=== PATIENT | female | born 1955 | race Caucasian/White ===

== ENCOUNTER → 2016-09-11 | Outpatient (CLI) | payer MEDICARE, OTHER ==
[~2016-09-11] MED LIST: ASPI-496 PO; ASPI-515 PO; B CO PO; CALC-451 PO; CHOL200024 PO; CLIN300C93 PO; CRAN1CAP9 PO; DEXA2TAB PO; DEXL30CA2 PO; EQUATE SLEEP AID PO; ESOM40CA PO; ESTR0.45 PO; FAMO-79 PO; FURO-93 PO; LEVE500T53 PO; LOSA25TA5 PO; MULT-717 PO; NAPR500T8 PO; OMEG1CAP48 PO; OXYC1TAB7 PO; RANI300T PO; SIMV10TA3 PO; VITA400T6 PO
== END | disposition home or self-care (01) ==
LOC: CFH 10:58
PROVIDERS: ATTEND Nurse Practitioner Family
DX: Z12.31 Encounter for screening mammogram for malignant neoplasm of breast (principal)
CPT/HCPCS: 77063; G0202

== ENCOUNTER → 2016-11-06 | Outpatient (CLI) | payer MEDICARE, OTHER ==
[~2016-11-06] MED LIST changes: +ACET1TAB64 PO; +LINA145C PO; +POTA15TA PO
== END | disposition home or self-care (01) ==
LOC: ROC 11:33
PROVIDERS: ATTEND Radiology Radiation Oncology
DX: D32.0 Benign neoplasm of cerebral meninges (principal)
CPT/HCPCS: G0463

== ENCOUNTER 2017-02-03 12:23 | Emergency (ER) | payer MEDICARE, OTHER ==
[~2017-02-03] VITALS: Ht 157.5 cm; Wt 65.0 kg
[2017-02-03 12:59] LABS: HEMATOCRIT 39.2 % (34.6-47.8); HEMOGLOBIN 12.9 g/dL (11.7-16.4); WHITE BLOOD COUNT 6.9 x10^3/uL (3.4-10)
[2017-02-03 13:09] LABS: BLOOD UREA NITROGEN 20 mg/dL (7-18)
[2017-02-03 14:45] VITALS: BP 127/69
== END 2017-02-03 14:50 | disposition home or self-care (01) ==
LOC: ED 14:00
DX: R56.9 Unspecified convulsions (principal); F41.1 Generalized anxiety disorder; I10 Essential (primary) hypertension; K21.9 Gastro-esophageal reflux disease without esophagitis; Z87.891 Personal history of nicotine dependence
CPT/HCPCS: 36415; 70450; 80048; 82040; 85025; 93005; 99285

== ENCOUNTER → 2017-08-18 | Outpatient (CLI) | payer MEDICARE, OTHER ==
[~2017-08-18] MED LIST changes: +CLIN300C8 PO; -CLIN300C93 PO; +GADOBUTROL 7.5 MMOL/7.5 ML PFS ONE
== END | disposition home or self-care (01) ==
LOC: CFH 12:16
PROVIDERS: ATTEND Nurse Practitioner
DX: D32.0 Benign neoplasm of cerebral meninges (principal)
CPT/HCPCS: 70553; 82565; A9585

== ENCOUNTER → 2018-02-03 | Outpatient (CLI) | payer MEDICARE, OTHER | END | disposition home or self-care (01) | LOC: CFH 12:00 | PROVIDERS: ATTEND Psychiatry & Neurology Neurology | DX: C70.9 Malignant neoplasm of meninges, unspecified (principal); D32.9 Benign neoplasm of meninges, unspecified; Z87.891 Personal history of nicotine dependence; Z85.820 Personal history of malignant melanoma of skin | CPT/HCPCS: 70553; 82565; A9585 ==

== ENCOUNTER → 2018-03-27 | Outpatient (CLI) | payer MEDICARE, OTHER ==
[~2018-03-27] MED LIST changes: -GADOBUTROL 7.5 MMOL/7.5 ML PFS ONE; -LOSA25TA5 PO; +LOSA25TA6 PO
== END | disposition home or self-care (01) ==
LOC: RAD 08:00 → CFH 13:49 → RAD 04-22 12:44
PROVIDERS: ATTEND Family Medicine
DX: Z13.820 Encounter for screening for osteoporosis (principal); I77.810 Thoracic aortic ectasia; M81.0 Age-related osteoporosis without current pathological fracture; E83.52 Hypercalcemia; Z78.0 Asymptomatic menopausal state
CPT/HCPCS: 71250; 77080; 78070; A9500

== ENCOUNTER → 2018-08-12 | Outpatient (CLI) | payer MEDICARE, OTHER ==
[~2018-08-12] MED LIST changes: +GADOBUTROL 7.5 MMOL/7.5 ML VIAL ONE; +LOSA25TA25 PO; -LOSA25TA6 PO
== END | disposition home or self-care (01) ==
LOC: CFH 14:14
PROVIDERS: ATTEND Psychiatry & Neurology Neurology
DX: D32.0 Benign neoplasm of cerebral meninges (principal)
CPT/HCPCS: 70553; 82565; A9585

== ENCOUNTER → 2018-10-28 | Outpatient (CLI) | payer MEDICARE, OTHER ==
[~2018-10-28] MED LIST changes: -GADOBUTROL 7.5 MMOL/7.5 ML VIAL ONE
== END | disposition home or self-care (01) ==
LOC: ROC 07:17
PROVIDERS: ATTEND Radiology Radiation Oncology
DX: D32.0 Benign neoplasm of cerebral meninges (principal); Z88.0 Allergy status to penicillin
CPT/HCPCS: G0463

== ENCOUNTER → 2018-11-23 | Outpatient (CLI) | payer MEDICARE, OTHER ==
[~2018-11-23] MED LIST changes: +GADOBUTROL 7.5 MMOL/7.5 ML PFS ONE
== END | disposition home or self-care (01) ==
LOC: CFH 13:56
PROVIDERS: ATTEND Radiology Radiation Oncology
DX: D32.0 Benign neoplasm of cerebral meninges (principal); G31.9 Degenerative disease of nervous system, unspecified
CPT/HCPCS: 70553; A9585

== ENCOUNTER 2018-11-25 10:25 | Outpatient (CLI) | payer MEDICARE, OTHER ==
[~2018-11-25 10:25] MED LIST changes: -GADOBUTROL 7.5 MMOL/7.5 ML PFS ONE
== END 2018-11-25 23:59 | disposition home or self-care (01) ==
LOC: PETCFH 10:25
PROVIDERS: ATTEND Surgery
DX: E21.0 Primary hyperparathyroidism (principal); E83.52 Hypercalcemia; M81.0 Age-related osteoporosis without current pathological fracture; R10.9 Unspecified abdominal pain; R53.83 Other fatigue; K21.9 Gastro-esophageal reflux disease without esophagitis; E78.00 Pure hypercholesterolemia, unspecified; E03.9 Hypothyroidism, unspecified; M62.81 Muscle weakness (generalized); R56.9 Unspecified convulsions
CPT/HCPCS: 78070; A9500

== ENCOUNTER → 2018-12-15 | Outpatient (CLI) | payer MEDICARE, OTHER ==
[~2018-12-15] MED LIST changes: +ACET-1600 PO; +ACID1TAB PO; +BACL-19 PO; +BENZ-17 PO; +CYAN1TAB29 PO; +DOCU-131 PO; +ESTR30CR VG; +LEVE10007 PO; +LORA1TAB PO; +NAPR-850 PO; +PUMP300C PO; +TELM20TA PO; +TIZA2TAB PO; +TOLT4CAP PO
[2018-12-15 11:51] LABS: MICROSCOPIC NOT IND
[2018-12-15 11:58] LABS: ALBUMIN 4.1 g/dL (3.4-5.0); CALCIUM 10.4 mg/dL (8.5-10.1); CHLORIDE 106 mmol/L (98-107)
[2018-12-15 12:02] LABS: CULTURE INDICATED? NO
[2018-12-15 12:03] LABS: ALANINE AMINOTRANSFERASE 14 U/L (12-78); ALKALINE PHOSPHATASE 108 U/L (45-117); ANION GAP 7 mmol/L (5-15); BILIRUBIN,TOTAL 0.6 mg/dL (0.2-1.0); CREATININE 1.07 mg/dL (0.55-1.02)
== END | disposition home or self-care (01) ==
LOC: STAR 10:14
PROVIDERS: ATTEND Surgery
DX: Z01.818 Encounter for other preprocedural examination (principal); E21.4 Other specified disorders of parathyroid gland; R94.31 Abnormal electrocardiogram [ECG] [EKG]
CPT/HCPCS: 36415; 80053; 81003; 93005

== ENCOUNTER 2018-12-21 08:14 | Outpatient (CLI) | payer MEDICARE, OTHER | END 2018-12-21 23:59 | disposition home or self-care (01) | LOC: ROC 08:14 | PROVIDERS: ATTEND Radiology Radiation Oncology | DX: D32.0 Benign neoplasm of cerebral meninges (principal) | CPT/HCPCS: G0463 ==

== ENCOUNTER 2018-12-28 05:51 | Day surgery (SDC) | payer MEDICARE, OTHER ==
[~2018-12-28] VITALS: Ht 157.5 cm; Wt 67.7 kg
[2018-12-28] MEDS ORDERED: LACTATED RINGERS 1,000 ML IV SCH (06:04)
[2018-12-28 06:32] VITALS: BP 134/87
[2018-12-28] MEDS ORDERED: MIDAZOLAM 1 MG/ML, 2ML ONE (07:21)
[2018-12-28] MEDS ORDERED: FENTANYL PF 250 MCG/5ML ONE (07:21)
[2018-12-28] MEDS ORDERED: DIPHENHYDRAMINE 50 MG/ML, 1ML IVPush PRN (07:30)
[2018-12-28] MEDS ORDERED: PROCHLORPERAZINE 5 MG/ML, 2ML IV PRN (07:30)
[2018-12-28] MEDS ORDERED: METOPROLOL 1 MG/ML, 5ML IV PRN (07:30)
[2018-12-28] MEDS ORDERED: hydrALAzine 20 MG/ML, 1ML IV PRN (07:30)
[2018-12-28] MEDS ORDERED: GABAPENTIN 300 MG CAPSULE PO ONE (07:30)
[2018-12-28] MEDS ORDERED: OXYcodone 5 MG/5 ML ORAL.SOL UDC PO PRN (07:30)
[2018-12-28] MEDS ORDERED: HYDROmorphone 2 MG/ML, 1ML IVPush PRN (07:30)
[2018-12-28] MEDS ORDERED: HALOPERIDOL 5 MG/ML IV PRN (07:30)
[2018-12-28] MEDS ORDERED: LABETALOL 5MG/ML, 20ML IV PRN (07:30)
[2018-12-28] MEDS ORDERED: PROMETHAZINE 25 MG/ML, 1ML IV PRN (07:30)
[2018-12-28] MEDS ORDERED: MEPERIDINE/PF 25MG/0.5ML IVPush PRN (07:30)
[2018-12-28] MEDS ORDERED: ACETAMINOPHEN 500 MG TABLET PO ONE (07:30)
[2018-12-28] MEDS ORDERED: CEFAZOLIN 1,000 MG ONE (08:15)
[2018-12-28] MEDS ORDERED: NEOSTIGMINE 1 MG/ML, 10ML ONE (08:15)
[2018-12-28] MEDS ORDERED: GLYCOPYRROLATE 0.2MG/1ML, 5ML ONE (08:15)
[2018-12-28] MEDS ORDERED: ONDANSETRON 2MG/ML, 2ML ONE (08:15)
[2018-12-28] MEDS ORDERED: SUCCINYLCHOLINE 20 MG/ML, 10ML ONE (08:15)
[2018-12-28] MEDS ORDERED: DEXAMETHASONE 4 MG/ML, 1ML ONE (08:15)
[2018-12-28] MEDS ORDERED: PROPOFOL 10 MG/ML, 20ML ONE (08:15)
[2018-12-28] MEDS ORDERED: ROCURONIUM 10MG/ML,5ML ONE (08:15)
[2018-12-28 08:53] LABS: IOPTH BASELINE 84 pg/mL
[2018-12-28 08:54] LABS: 10MIN %DROP IOPTH 81 %; 5MIN %DROP IOPTH 73 %
[2018-12-28] MEDS ORDERED: FENTANYL PF 100 MCG/2ML ONE (08:58)
[2018-12-28] MEDS ORDERED: OXYcodone 5 MG/5 ML ORAL.SOL UDC ONE (08:59)
[2018-12-28] MEDS: FENTANYL PF 100 MCG/2ML IV PRN ×3 (09:00→09:35)
== END 2018-12-28 13:15 | disposition home or self-care (01) ==
LOC: OUT 05:51
PROVIDERS: ATTEND Surgery
DX: D35.1 Benign neoplasm of parathyroid gland (principal); K21.9 Gastro-esophageal reflux disease without esophagitis; I10 Essential (primary) hypertension; E78.00 Pure hypercholesterolemia, unspecified; E03.9 Hypothyroidism, unspecified; M81.0 Age-related osteoporosis without current pathological fracture; R56.9 Unspecified convulsions; Z72.89 Other problems related to lifestyle; Z79.899 Other long term (current) drug therapy; Z88.2 Allergy status to sulfonamides; Z92.3 Personal history of irradiation; Z87.891 Personal history of nicotine dependence; Z98.1 Arthrodesis status; Z82.49 Family history of ischemic heart disease and other diseases of the circulatory system; Z80.0 Family history of malignant neoplasm of digestive organs
CPT/HCPCS: 36415; 60500; 83970; 88305; 88331; C1760; J0330; J0690; J1100; J2250; J2405; J2704; J2710; J3010; J7120

== ENCOUNTER 2019-02-01 09:50 | Outpatient (CLI) | payer MEDICARE, OTHER | END 2019-02-01 23:59 | disposition home or self-care (01) | LOC: CFH 09:50 | PROVIDERS: ATTEND Radiology Radiation Oncology | DX: D32.0 Benign neoplasm of cerebral meninges (principal) | CPT/HCPCS: 70553; A9585 ==

== ENCOUNTER 2019-05-17 17:17 | Inpatient (IN) | payer MEDICARE, OTHER ==
[~2019-05-17] VITALS: Ht 157.5 cm; Wt 63.5 kg
[~2019-05-17 17:17] MED LIST changes: -TIZA2TAB PO; +TIZA2TAB2 PO
[2019-05-17 18:14] LABS: BASOPHILS # (AUTO) 0.06 x10^3/uL (0-0.1); BASOPHILS % (AUTO) 1 % (0-1); EOSINOPHILS % (AUTO) 1 % (1-7); LYMPHOCYTES # (AUTO) 2.39 x10^3/uL (1-3.4); LYMPHOCYTES % (AUTO) 21 % (22-44); MD NO; MEAN CORPUSCULAR HEMOGLOBIN 30.1 pg (27.0-34.8); MEAN CORPUSCULAR HGB CONC 32.9 g/dL (32.4-35.8); MEAN CORPUSCULAR VOLUME 91.5 fL (80-100); MEAN PLATELET VOLUME 8.2 fL (7.4-10.4); MONOCYTES # (AUTO) 0.71 x10^3/uL (0.2-0.8); MONOCYTES % (AUTO) 6 % (2-9); NEUTROPHILS # (AUTO) 7.94 x10^3/uL (1.8-6.8); NEUTROPHILS % (AUTO) 71 % (42-75); PLATELET COUNT 425 x10^3/uL (130-400); RED BLOOD COUNT 4.24 x10^6/uL (3.82-5.3); RED CELL DISTRIBUTION WIDTH 15.7 % (9.6-15.2)
[2019-05-17 18:37] LABS: ALBUMIN 3.5 g/dL (3.4-5.0); ANION GAP 8 mmol/L (5-15); CALCIUM 8.8 mg/dL (8.5-10.1); CHLORIDE 106 mmol/L (98-107); CREATININE 0.95 mg/dL (0.55-1.02)
[2019-05-17 18:39] LABS: INTERNATIONAL NORMALIZED RATIO 0.97 (0.93-1.1); PROTHROMBIN TIME 10.2 Seconds (9.6-11.5)
--- NOTE | 2019-05-17 18:50 | NUR ---
Patient back from MRI. Purewick placed with no complications at the request of patient due to chronic incontinence. Patient resting comfortably.
--- NOTE | 2019-05-17 19:12 | NUR ---
Report given to AMARILYS Flanagan. All questions addressed.
[2019-05-17 19:53] LABS: AMPHETAMINE SCREEN, URINE Negative (Negative); BARBITURATE SCREEN, URINE Negative (Negative); BENZODIAZEPINE SCREEN, URINE Negative (Negative); CANNABINOID SCREEN, URINE Negative (Negative); COCAINE SCREEN, URINE Negative (Negative); METHADONE SCREEN, URINE Negative (Negative); OPIATE SCREEN, URINE Negative (Negative)
[2019-05-17] MEDS ORDERED: POLYETHYLENE GLYCOL 17 GM PACKET PO PRN (20:30)
[2019-05-17] MEDS ORDERED: ACETAMINOPHEN 325 MG TABLET PO PRN (20:30)
[2019-05-17] MEDS ORDERED: ESTROGENS CONJUGATED 0.45 MG PO SCH (20:30)
[2019-05-17] MEDS ORDERED: ONDANSETRON ODT 4 MG PO PRN (20:30)
[2019-05-17] MEDS ORDERED: BISACODYL 10 MG SUPP PR PRN (20:30)
[2019-05-17] MEDS ORDERED: SIMVASTATIN 10 MG TABLET PO SCH (21:00)
[2019-05-17] MEDS ORDERED: LEVETIRACETAM 500 MG TABLET PO SCH (21:00)
[2019-05-17 21:47] VITALS: BP 98/73
[2019-05-17] MEDS: BACLOFEN 10 MG TABLET PO SCH (22:17)
[2019-05-17] MEDS: SODIUM CHLORIDE FLUSH 10ML SYR IVF SCH (22:17)
[2019-05-17] MEDS: LORazepam 1MG TABLET PO PRN (22:17)
[2019-05-17] MEDS ORDERED: MELA1TAB15 PO (22:26)
[2019-05-17] MEDS ORDERED: FAMOTIDINE 20 MG TABLET PO ONE (23:00)
[2019-05-17] MEDS ORDERED: FAMOTIDINE 20 MG TABLET ONE (23:34)
[2019-05-17] MEDS ORDERED: MELATONIN 5 MG TABLET ONE (23:34)
[2019-05-17] MEDS: MELATONIN 5 MG TABLET PO SCH (23:36)
[2019-05-18 00:34] VITALS: BP 90/64
[2019-05-18] MEDS: PANTOPROZOLE 40MG TABLET PO SCH (06:07)
[2019-05-18 06:10] LABS: ALBUMIN 3.5 g/dL (3.4-5.0); ANION GAP 9 mmol/L (5-15); CALCIUM 8.9 mg/dL (8.5-10.1); CHLORIDE 104 mmol/L (98-107)
[2019-05-18 06:13] LABS: ALANINE AMINOTRANSFERASE 17 U/L (12-78); ALKALINE PHOSPHATASE 83 U/L (45-117); BILIRUBIN,TOTAL 0.3 mg/dL (0.2-1.0); CHOLESTEROL, TOTAL 192 mg/dL (140-239); CREATININE 0.83 mg/dL (0.55-1.02); HDL CHOL % 50 % (28-40); HDL CHOLESTEROL (DIRECT) 96 mg/dL (40-60); LDL CHOLESTEROL,CALCULATED 66 mg/dL (54-169); LDL/HDL RATIO 0.7 (0.5-3.0); TRIGLYCERIDES 152 mg/dL (50-200); VLDL CHOLESTEROL 30 mg/dL (0-25)
[2019-05-18 06:21] LABS: BASOPHILS # (AUTO) 0.06 x10^3/uL (0-0.1); BASOPHILS % (AUTO) 1 % (0-1); EOSINOPHILS # (AUTO) 0.11 x10^3/uL (0-0.4); EOSINOPHILS % (AUTO) 2 % (1-7); LYMPHOCYTES # (AUTO) 2.18 x10^3/uL (1-3.4); LYMPHOCYTES % (AUTO) 29 % (22-44); MD NO; MEAN CORPUSCULAR HEMOGLOBIN 29.5 pg (27.0-34.8); MEAN CORPUSCULAR HGB CONC 32.8 g/dL (32.4-35.8); MEAN CORPUSCULAR VOLUME 90.1 fL (80-100); MEAN PLATELET VOLUME 7.9 fL (7.4-10.4); MONOCYTES # (AUTO) 0.51 x10^3/uL (0.2-0.8); MONOCYTES % (AUTO) 7 % (2-9); NEUTROPHILS % (AUTO) 62 % (42-75); PLATELET COUNT 389 x10^3/uL (130-400); RED BLOOD COUNT 4.22 x10^6/uL (3.82-5.3); RED CELL DISTRIBUTION WIDTH 15.9 % (9.6-15.2)
[2019-05-18 06:58] VITALS: BP 110/77
[2019-05-18] MEDS ORDERED: [UNRECOGNIZED DRUG - OTHER] PO SCH (09:00)
[2019-05-18] MEDS ORDERED: ASPIRIN 81 MG TABLET EC PO SCH (09:00)
[2019-05-18] MEDS ORDERED: SOY GERM PO SCH (09:00)
[2019-05-18] MEDS ORDERED: PUMPKIN SEED EXTRACT PO SCH (09:00)
[2019-05-18] MEDS: ASPIRIN 81 MG TABLET EC PO SCH ×2 (10:10→11:07)
[2019-05-18] MEDS: SODIUM CHLORIDE FLUSH 10ML SYR IVF SCH ×2 (10:10→21:00)
[2019-05-18] MEDS: BACLOFEN 10 MG TABLET PO SCH (10:11)
[2019-05-18] MEDS: LORazepam 1MG TABLET PO PRN ×2 (10:11→16:16)
[2019-05-18] MEDS: LACTOBACILLUS CHEW TABLET PO SCH (10:13)
[2019-05-18] MEDS: VALSARTAN 80 MG TABLET PO SCH (10:13)
[2019-05-18] MEDS: CHOLECALCIFEROL 1,000 UNIT TABLET PO SCH (10:13)
[2019-05-18] MEDS: TOLTERODINE LA 4MG CAP.ER.24H PO SCH (10:15)
[2019-05-18] MEDS: MULTIVITS,STRESS FORMULA 1 TABLET PO SCH (10:16)
[2019-05-18] MEDS: SENNA/DOCUSATE TABLET PO SCH (10:16)
[2019-05-18] MEDS: FAMOTIDINE 20 MG TABLET PO SCH ×2 (10:17→21:14)
[2019-05-18] MEDS ORDERED: LEVETIRACETAM 100 MG/ML ORAL SOL PO SCH ×2 (11:00→21:00)
[2019-05-18 13:57] VITALS: BP 90/57
[2019-05-18] MEDS: BACLOFEN 10 MG TABLET PO PRN (16:16)
[2019-05-18 18:44] VITALS: BP 96/68
[2019-05-18] MEDS: MELATONIN 5 MG TABLET PO SCH (21:14)
[2019-05-18] MEDS: LEVETIRACETAM 100 MG/ML ORAL SOL PO SCH (21:15)
[2019-05-18] MEDS: ATORVASTATIN 80 MG TABLET PO SCH (21:15)
[2019-05-19 01:32] VITALS: BP 100/61
[2019-05-19] MEDS: PANTOPROZOLE 40MG TABLET PO SCH (05:43)
[2019-05-19 06:34] LABS: CHLORIDE 105 mmol/L (98-107)
[2019-05-19 06:45] LABS: ALANINE AMINOTRANSFERASE 15 U/L (12-78); ALBUMIN 3.4 g/dL (3.4-5.0); ALKALINE PHOSPHATASE 80 U/L (45-117); ANION GAP 6 mmol/L (5-15); BILIRUBIN,TOTAL 0.2 mg/dL (0.2-1.0); CALCIUM 9.1 mg/dL (8.5-10.1); CREATININE 0.97 mg/dL (0.55-1.02); TOTAL PROTEIN 6.9 g/dL (6.4-8.2)
[2019-05-19 07:45] VITALS: BP 111/77
[2019-05-19] MEDS ORDERED: ASPIRIN 81 MG TABLET EC PO SCH (09:00)
[2019-05-19] MEDS: SODIUM CHLORIDE FLUSH 10ML SYR IVF SCH ×2 (10:15→20:08)
[2019-05-19] MEDS: LEVETIRACETAM 100 MG/ML ORAL SOL PO SCH ×2 (10:15→20:06)
[2019-05-19] MEDS: TOLTERODINE LA 4MG CAP.ER.24H PO SCH (10:16)
[2019-05-19] MEDS: VALSARTAN 80 MG TABLET PO SCH (10:16)
[2019-05-19] MEDS: SENNA/DOCUSATE TABLET PO SCH (10:16)
[2019-05-19] MEDS: FAMOTIDINE 20 MG TABLET PO SCH (10:17)
[2019-05-19] MEDS: CHOLECALCIFEROL 1,000 UNIT TABLET PO SCH (10:17)
[2019-05-19] MEDS: MULTIVITS,STRESS FORMULA 1 TABLET PO SCH (10:17)
[2019-05-19] MEDS: POTASSIUM CHLORIDE 20 MEQ TAB.ER.PRT PO SCH (10:18)
[2019-05-19] MEDS: BACLOFEN 10 MG TABLET PO PRN ×3 (10:22→22:46)
[2019-05-19] MEDS: LORazepam 1MG TABLET PO PRN ×3 (10:22→22:46)
[2019-05-19 13:35] VITALS: BP 103/72
[2019-05-19 19:11] VITALS: BP 92/63
[2019-05-19] MEDS: ATORVASTATIN 80 MG TABLET PO SCH (20:06)
[2019-05-19] MEDS: MELATONIN 5 MG TABLET PO SCH (20:06)
[2019-05-20 01:57] VITALS: BP 91/60
[2019-05-20] MEDS: PANTOPROZOLE 40MG TABLET PO SCH (06:12)
[2019-05-20 07:55] VITALS: BP 111/73
[2019-05-20] MEDS ORDERED: FAMOTIDINE 20 MG TABLET PO SCH (09:00)
[2019-05-20] MEDS: BACLOFEN 10 MG TABLET PO PRN (09:37)
[2019-05-20] MEDS: LORazepam 1MG TABLET PO PRN (09:37)
[2019-05-20] MEDS: VALSARTAN 80 MG TABLET PO SCH (09:38)
[2019-05-20] MEDS: LACTOBACILLUS CHEW TABLET PO SCH (09:38)
[2019-05-20] MEDS: MULTIVITS,STRESS FORMULA 1 TABLET PO SCH (09:39)
[2019-05-20] MEDS: TOLTERODINE LA 4MG CAP.ER.24H PO SCH (09:39)
[2019-05-20] MEDS: POTASSIUM CHLORIDE 20 MEQ TAB.ER.PRT PO SCH (09:39)
[2019-05-20] MEDS: SENNA/DOCUSATE TABLET PO SCH (09:39)
[2019-05-20] MEDS: CHOLECALCIFEROL 1,000 UNIT TABLET PO SCH (09:39)
[2019-05-20] MEDS: SODIUM CHLORIDE FLUSH 10ML SYR IVF SCH (09:40)
[2019-05-20] MEDS: LEVETIRACETAM 100 MG/ML ORAL SOL PO SCH (09:42)
[2019-05-20] MEDS ORDERED: LEVE100S6 PO (10:41)
[2019-05-27] MEDS ORDERED: HYDR-3240 PO (12:23)
[2019-05-28] MEDS ORDERED: LINA145C PO (08:13)
[2019-05-29] MEDS ORDERED: CEFD300C37 PO (12:37)
[2019-05-29] MEDS ORDERED: FERR325T16 PO (12:37)
== END 2019-05-20 14:10 | disposition home health service (06) | DRG 100 ==
LOC: ED 19:38 → EDIP 20:05 → 4EST 21:43 → DCLOUNGE 05-20 14:00
PROVIDERS: ADMIT Family Medicine; ATTEND Family Medicine
DX: G40.909 Epilepsy, unspecified, not intractable, without status epilepticus (principal); G93.6 Cerebral edema; I69.354 Hemiplegia and hemiparesis following cerebral infarction affecting left non-dominant side; D32.9 Benign neoplasm of meninges, unspecified; E78.00 Pure hypercholesterolemia, unspecified; E78.5 Hyperlipidemia, unspecified; G62.9 Polyneuropathy, unspecified; I10 Essential (primary) hypertension; Z66 Do not resuscitate; Z82.5 Family history of asthma and other chronic lower respiratory diseases; Z85.820 Personal history of malignant melanoma of skin; Z86.011 Personal history of benign neoplasm of the brain; Z87.442 Personal history of urinary calculi; Z87.891 Personal history of nicotine dependence; Z90.710 Acquired absence of both cervix and uterus
CPT/HCPCS: 36415; 70551; 80048; 80053; 80061; 80307; 82040; 85025; 85610; 85730; 93005; 93306; 93880; G0378

== ENCOUNTER → 2019-07-12 | Outpatient (CLI) | payer MEDICARE, OTHER ==
[~2019-07-12] MED LIST changes: +CEFD300C37 PO; +FERR325T16 PO; +HYDR-3240 PO; +LEVE100S6 PO; +MELA1TAB15 PO
== END | disposition home or self-care (01) ==
LOC: ROC 08:11
PROVIDERS: ATTEND Radiology Radiation Oncology
DX: D32.0 Benign neoplasm of cerebral meninges (principal); Z88.0 Allergy status to penicillin
CPT/HCPCS: G0463